=== PATIENT | male | born 1955 | race Native Hawaiian/Other Pacific Islander ===

== ENCOUNTER 2024-02-06 13:45 | Emergency (ER) | payer MEDICARE, OTHER, SELFPAY ==
[2024-02-06] VITALS (15 sets, daily range): BP systolic 124–173; BP diastolic 67–95; PULSE 55–83; RESP 9–24; TEMP 36.4–36.8; O2SAT 95–100; BMI 28.2
--- NOTE | 2024-02-06 14:14 | DI.CT.S_ITS ---
PROCEDURE: CT HEAD/BRAIN WO CON INDICATIONS: headache, nausea/vomiting TECHNIQUE: Noncontrast 4.5 mm thick angled axial sections acquired from the foramen magnum to the vertex, with coronal and sagittal reformats. For radiation dose reduction, the following was used: automated exposure control, adjustment of mA and/or kV according to patient size. COMPARISON: None. FINDINGS: Image quality: Diagnostic. CSF spaces: Basal cisterns are patent. No extra-axial fluid collections. The ventricles are symmetric in size and shape. Brain: No intracranial bleeds or masses. There is cerebral volume loss for age, with resultant ventricular and sulcal prominence. There are periventricular and deep white matter chronic small vessel ischemic changes. There is intracranial internal carotid artery atherosclerosis. Skull and face: Calvarium and visualized facial bones appear intact, without suspicious lesions. Sinuses: mild mucosal thickening in bilateral ethmoid sinuses and maxillary sinuses are seen. Bilateral mastoids are well aerated. IMPRESSION: No acute intracranial pathology. Mild bilateral maxillary and ethmoid sinusitis. Dictated by: Pilo Wing M.D. on 02/06/2024 at 14:50 Approved by: Pilo Wing M.D. on 02/06/2024 at 14:51
[2024-02-06] MEDS: SODIUM CHLORIDE 0.9% 1,000 ML 1000 ML IV ×2 (14:18→18:20)
[2024-02-06] MEDS: ONDANSETRON 4 MG/2 ML INJ IV (14:19)
[2024-02-06 14:21] LABS: Add Manual Diff / Slide Review NO; Basophils Absolute Auto 0 /uL (0-100); Basophils Percent Auto 0.5 % (0-2); Eosinophils Absolute Auto 0 /uL (0-450); Eosinophils Percent Auto 0.3 % (2-4); Hematocrit 47.7 % (41-53); Lymphocytes Absolute Auto 2700 /uL (1100-4500); Lymphocytes Percent Auto 28.8 % (25-40); Mean Corpuscular HGB Conc 33.5 % (30-36); Mean Corpuscular Hemoglobin 30.3 PG (26-34); Mean Corpuscular Volume 90.5 fL (80-100); Monocytes Absolute Auto 400 /uL (0-900); Monocytes Percent Auto 4.5 % (3-14); Neutrophils Absolute Auto 6100 /uL (1500-7000); Neutrophils Percent Auto 65.9 % (50-75); Platelet Count 260 X10^3/uL (150-400); Red Blood Cell Count 5.28 X10^6/uL (4.5-5.9); White Blood Cell Count 9.2 X10^3/uL (4.5-11.0)
[2024-02-06 14:30] LABS: INR 1.1 (0.9-1.3); Prothrombin Time 12.3 SECONDS (9.4-12.5)
[2024-02-06 14:34] LABS: Alanine Aminotransferase 46 IU/L (<50); Albumin 4.8 g/dL (3.5-5.0); Albumin Globulin Ratio 1.4 (1.0-2.8); Alkaline Phosphatase 67 U/L (38-126); Aspartate Aminotransferase 34 IU/L (17-59); BUN Creatinine Ratio 15.5 (6-22); Bilirubin Total 0.9 mg/dL (0.2-1.3); Blood Urea Nitrogen 15 mg/dL (9-20); Calcium 9.9 mg/dL (8.4-10.2); Carbon Dioxide 19 mmol/L (22-32); Chloride 104 mmol/L (98-107); Estimated Glomerular Filt Rate > 60 mL/min (>60); Globulin 3.4 g/dL (1.7-4.1); Glucose 140 mg/dL (80-110); HEMOLYSIS < 15 (0-50); Lipase 86 U/L (23-300); Potassium 3.8 mmol/L (3.4-5.1); Sodium 135 mmol/L (137-145); Total Protein 8.2 g/dL (6.3-8.2)
[2024-02-06 16:51] LABS: Bacteria Urine Few (2-10); Culture Indicated Urine Cult Not Indicated; Mucus Urine 1+ (Negative); RBC Urine 1-5/HPF (0-5/HPF); Squamous Epithelial Cell Urine 1-5 /HPF (0-5/HPF); Urine Volume 10mL (spun); WBC Urine 1-5/HPF (0-5/HPF)
--- NOTE | 2024-02-06 17:50 | ED.NAVMDI ---
HPI - Nausea/Vomiting/Diarrhea General Chief complaint: Nausea/Vomiting/Diarrhea Stated complaint: V/weak/chills Time Seen by Provider: 02/06/24 17:30 Source: patient and family Mode of arrival: Ambulatory History of Present Illness HPI Narrative: 68-year-old man who is here with headache nausea and vomiting. He has had this for 3 days. Had some chills with a but no fevers, not having abdominal pain and not having diarrhea. He notes that he was exposed to a grandchild who had a GI illness recently. He is continued to pass gas. No alcohol use recently. Has not had similar symptoms in the past. He says that prior to the onset of this he would use some topical erythromycin on his lips which he had been swelling recently. He says for last couple of weeks he has had intermittent swelling of his lips, this is preceded by a prickly sensation in his lips and sometimes he gets this and his tongue also. This is not been accompanied by wheezing or shortness of breath. He does not have a cough. His primary care provider put him on topical erythromycin for this. The patient takes lisinopril for hypertension. Also takes a statin and allopurinol. Related Data Home Medications Medication Instructions Recorded Confirmed allopurinol 100 mg tablet 100 mg PO DAILY 02/06/24 02/06/24 lisinopril 20 mg tablet 20 mg PO DAILY 02/06/24 02/06/24 simvastatin 20 mg tablet 20 mg PO ONCE PM 02/06/24 02/06/24 Previous Rx's Medication Instructions Recorded ondansetron 4 mg disintegrating 4 mg PO Q6H PRN nausea and 02/06/24 tablet vomiting #14 tabs Allergies Allergy/AdvReac Type Severity Reaction Status Date / Time No Known Drug Allergies Allergy Verified 02/06/24 13:57 Patient History Medical History (Updated 02/06/24 @ 17:50 by Jose Antonio Angelo MD) Hypertension High cholesterol Gout Social History Smoking Status: Never smoker Smoking Status: Never smoker alcohol intake frequency: holidays/special occasions only Substance Use Type: does not use Exam Narrative Exam Narrative: Alert, no acute distress HEENT: Normocephalic, atraumaitic moist mucus membranes. Voice is normal. No intraoral swelling, does appear to have a little bit of angioedema on his lips. I do not see any viral lesions or wounds. Neck: Supple no midline tenderness, no cervical adenopathy Lungs: Clear to ascultaion, no respiratory distress Heart: Regular rhythm and rate no murmur Abdomen: Normal bowel sounds, soft and nontender Extremeties: Full range of motion no deformity Neuro: Alert and oriented, normal speech moves x4 Initial Vital Signs Initial Vital Signs: Vital Signs Temperature 97.5 F L 02/06/24 13:48 Pulse Rate 83 02/06/24 13:48 Respiratory Rate 20 02/06/24 13:48 Blood Pressure 173/95 H 02/06/24 13:48 Pulse Oximetry 100 02/06/24 13:48 Oxygen Delivery Method Room Air 02/06/24 13:48 Course Orders Ordered: ED Orders 02/06/24 14:13 Complete Blood Count AUTO DIFF Stat Comprehensive Metabolic Panel Stat Lipase Stat Prothrombin Time INR Stat 02/06/24 14:14 CT head/brain wo con Stat 02/06/24 15:49 EKG-12 Lead Stat 02/06/24 16:00 Urine Microscopic Stat Ondansetron HCl (Ondansetron 4 Mg Odt) 4 mg PO NOW PRN PRN Reason: Nausea And Vomiting Ondansetron HCl (Ondansetron 4 Mg/2 Ml Inj) 4 mg IV NOW PRN PRN Reason: Nausea And Vomiting Last Admin: 02/06/24 14:19 Dose: 4 mg Documented By: NICHO Discontinued Medications Acetaminophen (Acetaminophen 325 Mg Tablet) 650 mg PO NOW ONE Stop: 02/06/24 17:48 Last Admin: 02/06/24 18:19 Dose: 650 mg Documented By: VALERIE Sodium Chloride (Normal Saline 0.9%) 1,000 mls @ 1,000 mls/hr IV BOLUS ONE Stop: 02/06/24 15:13 Last Infusion: 02/06/24 15:13 Dose: Infused Documented By: Admin: 02/06/24 14:18 Dose: 1,000 mls/hr Documented By: NICHO Sodium Chloride (Normal Saline 0.9%) 1,000 mls @ 1,000 mls/hr IV BOLUS ONE Stop: 02/06/24 18:45 Last Admin: 02/06/24 18:20 Dose: 1,000 mls/hr Documented By: VALERIE Reevaluation(s) Reevaluation #1: Tolerating oral intake, we will discharge to home Vital Signs Vital signs: Vital Signs - 8 hr 02/06/24 13:48 02/06/24 14:00 02/06/24 14:02 Temperature 97.5 F L Pulse Rate 83 74 68 Respiratory Rate 20 24 19 Blood Pressure 173/95 H Pulse Oximetry 100 100 100 Oxygen Delivery Method Room Air 02/06/24 14:02 02/06/24 14:30 02/06/24 14:43 Temperature Pulse Rate 73 64 Respiratory Rate 24 17 Blood Pressure 144/76 H Pulse Oximetry 100 100 Oxygen Delivery Method 02/06/24 14:43 02/06/24 15:00 02/06/24 15:00 Temperature Pulse Rate 62 Respiratory Rate 15 Blood Pressure 136/79 140/73 Pulse Oximetry 98 Oxygen Delivery Method 02/06/24 15:30 02/06/24 15:30 02/06/24 16:07 Temperature Pulse Rate 65 75 Respiratory Rate 11 L 15 Blood Pressure 124/72 Pulse Oximetry 95 98 Oxygen Delivery Method 02/06/24 16:30 02/06/24 16:30 02/06/24 17:00 Temperature Pulse Rate 59 L 58 L Respiratory Rate 9 L 11 L Blood Pressure 142/78 H Pulse Oximetry 97 95 Oxygen Delivery Method 02/06/24 17:00 02/06/24 17:30 02/06/24 17:30 Temperature Pulse Rate 56 L Respiratory Rate 10 L Blood Pressure 137/72 136/67 Pulse Oximetry 97 Oxygen Delivery Method 02/06/24 18:00 02/06/24 18:00 02/06/24 18:19 Temperature 98.2 F Pulse Rate 55 L Respiratory Rate 10 L Blood Pressure 134/70 Pulse Oximetry 96 Oxygen Delivery Method MDM - Nausea/Vomiting/Diarrhea Lab Data Lab results narrative: CBC with diff is remarkable for what appears to be some mild hemoconcentration. CMP is unremarkable, urinalysis shows ketones but no evidence of infection 02/06/24 14:13 02/06/24 14:13 Labs: Lab Results 02/06/24 02/06/24 Range/Units 14:13 16:00 WBC 9.2 (4.5-11.0) X10^3/uL RBC 5.28 (4.5-5.9) X10^6/uL Hgb 16.0 (13.5-17.5) g/dL Hct 47.7 (41-53) % MCV 90.5 (80-100) fL MCH 30.3 (26-34) PG MCHC 33.5 (30-36) % RDW 13.0 (11.6-14.8) % Plt Count 260 (150-400) X10^3/uL Neut % (Auto) 65.9 (50-75) % Lymph % (Auto) 28.8 (25-40) % Coffee % (Auto) 4.5 (3-14) % Eos % (Auto) 0.3 L (2-4) % Baso % (Auto) 0.5 (0-2) % Neut # (Auto) 6100 (7487-9787) /uL Lymph # (Auto) 2700 (7348-4804) /uL Coffee # (Auto) 400 (0-900) /uL Eos # (Auto) 0 (0-450) /uL Baso # (Auto) 0 (0-100) /uL PT 12.3 (9.4-12.5) SECONDS INR 1.1 (0.9-1.3) Sodium 135 L (137-145) mmol/L Potassium 3.8 (3.4-5.1) mmol/L Chloride 104 (98-107) mmol/L Carbon Dioxide 19 L (22-32) mmol/L BUN 15 (9-20) mg/dL Creatinine 0.97 (0.66-1.25) mg/dL Estimated GFR > 60 (>60) mL/min BUN/Creatinine Ratio 15.5 (6-22) Glucose 140 H (80-110) mg/dL Calcium 9.9 (8.4-10.2) mg/dL Total Bilirubin 0.9 (0.2-1.3) mg/dL AST 34 (17-59) IU/L ALT 46 (<50) IU/L Alkaline Phosphatase 67 (38-126) U/L Total Protein 8.2 (6.3-8.2) g/dL Albumin 4.8 (3.5-5.0) g/dL Globulin 3.4 (1.7-4.1) g/dL Albumin/Globulin Ratio 1.4 (1.0-2.8) Lipase 86 (23-300) U/L Urine RBC 1-5/hpf (0-5/HPF) Urine WBC 1-5/hpf (0-5/HPF) Ur Squamous Epith Cells 1-5 /hpf (0-5/HPF) Urine Bacteria Few (2-10) H (None) Urine Mucus 1+ H (Negative) Ur Culture Indicated? Cult not indicated Vol Urine Centrifuged 10ml (spun) Urine Dip Bedside Urine Glucose Negative Bedside Urine Bilirubin - Negative Bedside Urine Ketone +++ 80 Urine Specific [place] 1.010 Bedside Urine Occult Blood +/- Bedside Urine pH 8.5 Bedside Urine Protein +/- 15 Bedside Urine Urobilinogen - Negative Bedside Urine Nitrite - Negative Bedside Urine Leukocytes - Negative Esterase Imaging Data CT scan - head: My Impression: Independent review, no acute findings Radiologist's Impression: Radiology report reviewed, no acute findings ECG Data Interpretation: ECG shows normal sinus rhythm at 67 no ischemic changes [time] EKG is normal sinus rhythm rate [ ] and free of any signs of ischemia or ectopy. No ST segmental elevation or depression. No T wave inversions MDM Narrative Medical decision making narrative: 68-year-old male with acute nausea and vomiting accompanied by headache. Lab workup shows evidence of dehydration. I considered meningitis which does not appear to be present. I considered bowel obstruction, this does not appear to be present. This is not appear to be an anaphylactic reaction and no evidence of intracranial hemorrhage. Given his recent exposure to a child with a GI illness and is overall well appearance I suspect it has probably a viral syndrome. He has been hydrated in the emergency department and is tolerating oral intake. I will provide a prescription for ondansetron. Additionally, the patient has what seems to be angioedema of his lips. The possibility that this is related to his lisinopril exists and I will recommend that he discontinue his lisinopril and then contact his primary care provider regarding substitution for blood pressure control medications. Discharge Plan Departure Patient Disposition: Home Clinical Impression: Nausea & vomiting Qualifiers: Vomiting type: unspecified Qualified Code(s): R11.2 - Nausea with vomiting, unspecified Headache Qualifiers: Headache type: unspecified Headache chronicity pattern: acute headache Intractability: not intractable Qualified Code(s): R51.9 - Headache, unspecified Angioedema Qualifiers: Encounter type: initial encounter Qualified Code(s): T78.3XXA - Angioneurotic edema, initial encounter Instructions: DI for Dehydration -- Adult Activity Restrictions/Additional Instructions: Emergency department evaluation today is reassuring. I think that is most likely you have a gastrointestinal bug and hopefully frequent small amounts of liquids with the addition of ondansetron to use as needed for nausea and vomiting we will get you through this. You may develop some diarrhea if you do, do not be surprised. If you are having abdominal pain uncontrolled vomiting fevers or other acute symptoms recheck in the emergency department. I am suspicious that your lip swelling is being caused by your lisinopril. I recommend you discontinue the lisinopril. Contact your primary care provider as soon as possible to discuss other medications to use for your blood pressure. If you have severe lip swelling or swelling in your throat return to the emergency department. Prescriptions: New ondansetron 4 mg tablet,disintegrating 4 mg PO Q6H PRN (Reason: nausea and vomiting) Qty: 14 0RF No Action lisinopril 20 mg tablet 20 mg PO DAILY allopurinol 100 mg tablet 100 mg PO DAILY simvastatin 20 mg tablet 20 mg PO ONCE PM Referrals: Maryjo Colby MD [Primary Care Provider] - Stand Alone Forms: Patient Portal/API
[2024-02-06] MEDS: ACETAMINOPHEN 325 MG TABLET 650 MG PO (18:19)
== END 2024-02-06 19:05 | disposition home or self-care (01) ==
PROVIDERS: Emergency Provider Emergency Medicine; PCP Family Medicine
DX: R11.2 Nausea with vomiting, unspecified (principal); R51.9 Headache, unspecified; T78.3XXA Angioneurotic edema, initial encounter
CPT/HCPCS: 36415; 70450; 80053; 81003; 81015; 83690; 85025; 85610; 93005; 93010; 96361; 96374; 99284; J2405

== ENCOUNTER → 2025-04-11 08:11 | Outpatient (CLI) | payer MEDICARE, OTHER, SELFPAY ==
[2025-04-11 08:59] LABS: Add Manual Diff / Slide Review NO; Basophils Absolute Auto 0 /uL (0-100); Basophils Percent Auto 0.8 % (0-2); Eosinophils Absolute Auto 400 /uL (0-450); Eosinophils Percent Auto 7.6 % (2-4); Hematocrit 46.4 % (41-53); Hemoglobin 15.7 g/dL (13.5-17.5); Lymphocytes Absolute Auto 1700 /uL (1100-4500); Lymphocytes Percent Auto 34.4 % (25-40); Mean Corpuscular HGB Conc 33.7 % (30-36); Mean Corpuscular Hemoglobin 30.6 PG (26-34); Mean Corpuscular Volume 90.7 fL (80-100); Monocytes Absolute Auto 400 /uL (0-900); Monocytes Percent Auto 7.7 % (3-14); Neutrophils Absolute Auto 2400 /uL (1500-7000); Neutrophils Percent Auto 49.5 % (50-75); Platelet Count 192 X10^3/uL (150-400); Red Blood Cell Count 5.11 X10^6/uL (4.5-5.9); Red Cell Distribution Width 13.1 % (11.6-14.8); White Blood Cell Count 4.9 X10^3/uL (4.5-11.0)
[2025-04-11 09:18] LABS: BUN Creatinine Ratio 13.5 (6-22); Blood Urea Nitrogen 13 mg/dL (9-20); Calcium 9.3 mg/dL (8.4-10.2); Carbon Dioxide 28 mmol/L (22-32); Chloride 102 mmol/L (98-107); Cholesterol 173 mg/dL (140-199); Estimated Glomerular Filt Rate > 60 mL/min (>60); Glucose 106 mg/dL (70-99); HDL Cholesterol 46 mg/dL (40-60); HEMOLYSIS 25 (0-50); LDL Cholesterol Calculated 106 mg/dL (<100); Potassium 4.3 mmol/L (3.4-5.1); Sodium 137 mmol/L (137-145); Triglycerides 107 mg/dL (35-150)
[2025-04-11 09:22] LABS: Hemoglobin A1C% w Est Avg Glu 5.3 % (4.0-6.0)
== END ==
PROVIDERS: PCP Nurse Practitioner Family; Referring Provider Nurse Practitioner Family; Visit Provider Nurse Practitioner Family
DX: E78.00 Pure hypercholesterolemia, unspecified (principal); I10 Essential (primary) hypertension
CPT/HCPCS: 36415; 80048; 80061; 83036; 85025

== ENCOUNTER → 2025-04-13 09:06 | Outpatient (CLI) | payer MEDICARE, OTHER, SELFPAY ==
[2025-04-13 10:39] LABS: Prostate Specific Antigen Scrn 0.422 ng/mL (0.1-4.0)
== END ==
PROVIDERS: PCP Nurse Practitioner Family; Referring Provider Nurse Practitioner Family; Visit Provider Nurse Practitioner Family
DX: Z12.5 Encounter for screening for malignant neoplasm of prostate (principal)
CPT/HCPCS: 36415; G0103

== ENCOUNTER 2025-10-11 07:32 | Day surgery (SDC) | payer MEDICARE, OTHER, SELFPAY ==
[2025-10-02 10:38] VITALS: BMI 27.9
[2025-10-11] MEDS: LACTATED RINGERS 1,000 ML 42 ML IV (08:10)
[2025-10-11 08:17] VITALS: BP 167/107; PULSE 82; RESP 16; TEMP 36.1; O2SAT 99
--- NOTE | 2025-10-11 08:19 | PM.HP.IH.1 ---
History of Present Illness History of Present Illness Date Patient Seen: 10/11/25 Chief complaint: Screening Colonoscopy [facility] Medical History (Updated 03/24/24 @ 08:56 by IV[facility] GoodwinMARY [facility] Contact dermatitis Hypertension High cholesterol Gout Family History (Updated 02/17/24 @ 13:36 by Coleen Louis MA) Father Hypertension Mother Breast cancer Social History (Updated 02/17/24 @ 13:39 by Coleen Louis MA) marital status: number of children: 2 household members: spouse lives independently: Yes caregiver/support person: No housing: house pets and animals: No education level: college occupational status: previously employed current occupational exposures/hazards: No Previous occupational history: [employer]ave[employer] merle/catholic: Michelle special merle needs: No leisure activities: sports, exercise, music, reading and volunteer work seatbelt use: always helmet use: Yes water heater temp set < 120 deg: Yes working smoke detector in home: Yes fire extinguisher in home: Yes carbon monox detector in home: Yes firearms in home: No do you feel safe at home: Yes Smoking Status: Former smoker Tobacco: How many years used: 2 second hand exposure: No alcohol intake: current during the past year weight has: remained stable well-balanced diet: daily or most days daily servings fruits/ve-4 caffeine: Yes eating out: 1-3 times/week Type(s) of exercise: walking, regular exercise and other frequency: 5-6 times per week duration: 30-45 minutes/day Meds Home Medications and Allergies Home Medications ?Medication ?Instructions ?Recorded ?Confirmed ?Type omega [id number]-fish oil 1,200 mg cap PO 02/18/24 04/13/25 History (144 mg-216 mg) capsule (Fish Oil) pimecrolimus 1 % topical cream applic topical 03/24/24 04/13/25 History triamcinolone acetonide 0.1 % 1 applic topical BID 03/24/24 10/11/25 History topical ointment allopurinol 100 mg tablet 100 mg PO DAILY #120 tabs 04/13/25 10/11/25 Rx amlodipine 2.5 mg tablet 2.5 mg PO DAILY #120 tabs 04/13/25 10/11/25 Rx clobetasol 0.05 % topical ointment 1 applic topical DAILY rash 04/13/25 10/11/25 History multivitamin with minerals-folic 1 tab PO DAILY 04/13/25 10/11/25 History acid 80 mcg chewable tablet (Centrum Adult 50 Plus) atorvastatin 40 mg tablet 40 mg PO BEDTIME #90 tabs 06/01/25 10/11/25 Rx Exam Narrative Exam Narrative: Oropharynx free of lesions Chest clear to auscultation percussion Cardiac exam reveals no S3 or murmur Assessment & Plan Assessment & Plan narrative: Follow-up 10 year colonoscopy. Previously with significant nausea and vomiting for more than 24 hours. Need for follow-up colonoscopy and pretreatment with anti nausea and. Risks, benefits, alternatives have been explained. Time-Based Coding :: [TOTAL MINUTES] spent with patient and on the chart (including review of chart, obtaining history, exam, reviewing outside data, placing orders, documenting exam and treatment plan, and counseling patient) on [DATE]. [employer] Document charge(s): No
--- NOTE | 2025-10-11 08:21 | PM.OP.ENDO ---
Operative Date/Time/Diagnoses Date of procedure: 10/11/25 Time of procedure: 08:50 Pre-op diagnosis: Ten year screening colonoscopy Post-op diagnosis: same Procedure & Clinicians Study performed: Colonoscopy Same procedure(s) as scheduled: Yes Indications: Screening colonoscopy in 10 years Surgeon: Wood Frank Anesthesia Type: MAC +/- Procedure Notes Procedure in detail: After informed consent was obtained the patient was placed in left lateral decubitus position. The video colonoscope was introduced the rectum slowly advanced cecum. Preparation was good. On slow withdrawal mucosa was carefully examined. The scope was removed. The patient tolerated the procedure well. Blood loss none Complications none Sedation mac Findings 1. Normal colonoscopy to cecum Patient will need follow-up colonoscopy in 10 years. Of note is will monitor him closely postprocedure to make sure he does not develop any nausea and vomiting. Records were obtained well over 10 years ago at which time he received 5 of Versed and 150 of fentanyl Estimated Blood Loss: 0 Complications: none
[2025-10-11 08:51] VITALS: BP 120/77; PULSE 57; RESP 16; TEMP 36.4; O2SAT 97
[2025-10-11 08:55] VITALS: BP 121/78; PULSE 55; RESP 15; O2SAT 95
[2025-10-11 09:00] VITALS: BP 124/78; PULSE 67; RESP 20; O2SAT 98
== END 2025-10-11 09:22 | disposition home or self-care (01) ==
PROVIDERS: PCP Nurse Practitioner Family; Referring Provider Nurse Practitioner Family; Visit Provider Internal Medicine Gastroenterology
PROC: 0DJD8ZZ Inspection of Lower Intestinal Tract, Via Natural or Artificial Opening Endoscopic (ICD-10-PCS; CPT 45378; principal; 2025-10-11 08:45)
DX: Z12.11 Encounter for screening for malignant neoplasm of colon (principal)
CPT/HCPCS: G0121; J2405; J2704; J7120